=== PATIENT | male | born 1985 | race Two or more races ===

== ENCOUNTER 2016-04-28 23:26 | Emergency (ER) | payer MEDICAID, OTHER ==
[~2016-04-28] VITALS: Ht 180.3 cm; Wt 123.4 kg
[2016-04-28 23:48] VITALS: BP 159/84
== END 2016-04-29 05:17 | disposition left against medical advice (07) ==
LOC: ER 23:31
DX: M79.671 Pain in right foot (principal); Z53.21 Procedure and treatment not carried out due to patient leaving prior to being seen by health care provider
CPT/HCPCS: 73630